=== PATIENT | male | born 1990 | race Caucasian/White ===

== ENCOUNTER 2019-09-18 13:36 | Emergency (ER) | payer BC, OTHER ==
[~2019-09-18] VITALS: Ht 180.3 cm; Wt 71.9 kg
[2019-09-18] MEDS ORDERED: MULT-516 PO (14:36)
[2019-09-18] MEDS ORDERED: ESOM20CA PO (14:36)
--- NOTE | 2019-09-18 15:11 | NUR ---
[facility] RPT REC'D FROM [facility]. DR ORELLANA AT BEDSIDE, TEST RESULTS, D/C POC DISCUSSED AND QUESTIONS ANSWERED.
[2019-09-18 15:12] VITALS: BP 122/79
--- NOTE | 2019-09-18 15:15 | NUR ---
report given to FRANK Sunshine at [facility] to update pt with POC and results.
--- NOTE | 2019-09-18 15:15 | NUR ---
Patient/Caregiver given discharge instructions and they have confirmed that they understand the instructions. Patient ambulatory with steady gait.
== END 2019-09-18 16:08 | disposition home or self-care (01) ==
LOC: ED 15:15
DX: J06.9 Acute upper respiratory infection, unspecified (principal); M79.10 Myalgia, unspecified site
CPT/HCPCS: 71046; 93005; 99283; 99284